=== PATIENT | male | born 1970 | race African-American/Black ===

== ENCOUNTER 2022-10-22 14:57 | Inpatient (IN) | payer OTHER ==
[2022-10-22 16:01] VITALS: BMI 23.3
[2022-10-22] MEDS ORDERED: COLLOIDAL OATMEAL 1 BAR EACH TP PRN (18:41)
[2022-10-22] MEDS ORDERED: NALOXONE HCL (KLOXXADO) 8 MG SPRAY NS PRN (18:41)
[2022-10-22] MEDS ORDERED: IBUPROFEN 600 MG TABLET (FP) PO PRN (18:41)
[2022-10-22] MEDS ORDERED: ACETAMINOPHEN 325 MG TABLET (FP) PO PRN (18:41)
[2022-10-22] MEDS ORDERED: MAG HYDROX/AL HYDROX/SIMETH 30 ML UNIT-DOSE CUP PO PRN (18:41)
[2022-10-22] MEDS ORDERED: POLYETHYLENE GLYCOL (HEALTHYLAX) 3350 17 GM PACKET PO PRN (18:41)
[2022-10-22] MEDS ORDERED: MAGNESIUM HYDROX 2400MG/30ML ORAL SUSPENSION 30 ML CUP PO PRN (18:41)
[2022-10-22] MEDS ORDERED: IBUPROFEN 400 MG TABLET (FP) PO PRN (18:41)
[2022-10-22] MEDS ORDERED: AMMONIUM LACTATE 12% LOTION 225 GM BOTTLE TP PRN (18:41)
[2022-10-22] MEDS ORDERED: BENZONATATE 200 MG CAPSULE PO PRN (18:41)
[2022-10-22] MEDS ORDERED: guaiFENesin 600 MG TABLET.ER (FP) PO PRN (18:41)
[2022-10-22] MEDS ORDERED: LOPERAMIDE HCL 2 MG CAPSULE PO PRN (18:41)
[2022-10-22] MEDS ORDERED: NALOXONE HCL 0.4 MG/ML VIAL IM PRN (18:41)
[2022-10-22] MEDS ORDERED: hydrOXYzine PAMOATE 25 MG CAPSULE (FP) PO PRN (18:41)
[2022-10-22] MEDS ORDERED: BENZOCAINE/MENTHOL (CHLORASEPTIC ) LOZENGE MM PRN (18:41)
[2022-10-22] MEDS: MELATONIN 5 MG TABLETS PO SCH (21:45)
[2022-10-22] MEDS: LACOSAMIDE 50 MG TABLET PO SCH (21:46)
[2022-10-22] MEDS: THIAMINE HCL 100 MG TABLET (FP) PO SCH (21:46)
[2022-10-22] MEDS ORDERED: TUBERCULIN PPD 5 TU/0.1ML VIAL ID ONE (21:53)
[2022-10-22] MEDS ORDERED: risperiDONE 1 MG TABLET PO ONE (23:00)
[2022-10-23] MEDS: LACOSAMIDE 50 MG TABLET PO SCH ×2 (09:38→21:47)
[2022-10-23] MEDS: PRENATAL VITAMINS W/ FOLIC ACID TABLET (FP) PO SCH (09:38)
[2022-10-23] MEDS: FOLIC ACID 1 MG TABLET (FP) PO SCH (09:38)
[2022-10-23] MEDS: MIDODRINE HCL 5 MG TABLET PO SCH ×3 (09:39→18:54)
[2022-10-23 15:53] LABS: PH,URINE 7.5 (5.0-8.0); URINE APPEARANCE CLEAR; URINE BILIRUBIN NEGATIVE (NEGATIVE); URINE COLOR YELLOW; URINE GLUCOSE (UA) NEGATIVE (NEGATIVE); URINE KETONE NEGATIVE (NEGATIVE); URINE LEUK ESTERASE NEGATIVE (NEGATIVE); URINE NITRITE NEGATIVE (NEGATIVE); URINE PROTEIN NEGATIVE (NEGATIVE); URINE UROBILINOGEN 0.2 mg/dL (0.2-1.0)
[2022-10-23] MEDS: risperiDONE 2 MG TABLET PO SCH (21:22)
[2022-10-23] MEDS: MELATONIN 5 MG TABLETS PO SCH (21:22)
[2022-10-23] MEDS: THIAMINE HCL 100 MG TABLET (FP) PO SCH (21:22)
[2022-10-24] MEDS: risperiDONE 1 MG TABLET PO SCH (09:35)
[2022-10-24] MEDS: FOLIC ACID 1 MG TABLET (FP) PO SCH (09:35)
[2022-10-24] MEDS: MIDODRINE HCL 5 MG TABLET PO SCH ×3 (09:35→21:18)
[2022-10-24] MEDS: PRENATAL VITAMINS W/ FOLIC ACID TABLET (FP) PO SCH (09:35)
[2022-10-24] MEDS: LACOSAMIDE 50 MG TABLET PO SCH ×2 (09:35→21:17)
[2022-10-24 16:02] LABS: HEMATOCRIT 41.9 % (35.4-49); HEMOGLOBIN 14.3 GM/dL (11.7-16.9); MCH 30.6 pg (25.7-33.7); MCHC 34.1 g/dl (32.0-35.9); MEAN CELL VOLUME 89.7 fl (80-96); MEAN PLT VOLUME 8.1 fl (7.5-11.1); PLATELET COUNT 272 10^3/uL (134-434); RBC 4.67 M/mm3 (4.00-5.60); RDW 14.5 % (11.9-15.9)
[2022-10-24 16:07] LABS: POTASSIUM 4.2 mmol/L (3.5-5.1)
[2022-10-24 16:11] LABS: CALCIUM 8.5 mg/dL (8.5-10.1)
[2022-10-24 16:12] LABS: ALBUMIN 3.2 g/dl (3.4-5.0); BLOOD UREA NITROGEN 15.5 mg/dL (7-18)
[2022-10-24 16:15] LABS: CREATININE 0.9 mg/dL (0.55-1.3)
[2022-10-24 16:16] LABS: BILIRUBIN,TOTAL 0.3 mg/dL (0.2-1); TOT PROT 6.2 g/dl (6.4-8.2)
[2022-10-24] MEDS: THIAMINE HCL 100 MG TABLET (FP) PO SCH (21:17)
[2022-10-24] MEDS: MELATONIN 5 MG TABLETS PO SCH (21:17)
[2022-10-24] MEDS: risperiDONE 2 MG TABLET PO SCH (21:18)
[2022-10-25] MEDS: LACOSAMIDE 50 MG TABLET PO SCH ×2 (09:53→21:34)
[2022-10-25] MEDS: PRENATAL VITAMINS W/ FOLIC ACID TABLET (FP) PO SCH (09:54)
[2022-10-25] MEDS: MIDODRINE HCL 5 MG TABLET PO SCH ×3 (09:54→17:05)
[2022-10-25] MEDS: risperiDONE 1 MG TABLET PO SCH (09:54)
[2022-10-25] MEDS: FOLIC ACID 1 MG TABLET (FP) PO SCH (09:54)
[2022-10-25] MEDS: risperiDONE 2 MG TABLET PO SCH (21:34)
[2022-10-25] MEDS: MELATONIN 5 MG TABLETS PO SCH (21:34)
[2022-10-25] MEDS: THIAMINE HCL 100 MG TABLET (FP) PO SCH (21:34)
[2022-10-26] MEDS: LACOSAMIDE 50 MG TABLET PO SCH ×2 (09:42→21:13)
[2022-10-26] MEDS: FOLIC ACID 1 MG TABLET (FP) PO SCH (09:42)
[2022-10-26] MEDS: MIDODRINE HCL 5 MG TABLET PO SCH ×3 (09:42→18:30)
[2022-10-26] MEDS: PRENATAL VITAMINS W/ FOLIC ACID TABLET (FP) PO SCH (09:42)
[2022-10-26] MEDS: risperiDONE 1 MG TABLET PO SCH (09:42)
[2022-10-26] MEDS: MELATONIN 5 MG TABLETS PO SCH (21:12)
[2022-10-26] MEDS: THIAMINE HCL 100 MG TABLET (FP) PO SCH (21:12)
[2022-10-26] MEDS: risperiDONE 2 MG TABLET PO SCH (21:12)
[2022-10-27] MEDS: LACOSAMIDE 50 MG TABLET PO SCH ×2 (10:00→21:14)
[2022-10-27] MEDS: MIDODRINE HCL 5 MG TABLET PO SCH ×3 (10:00→18:36)
[2022-10-27] MEDS: risperiDONE 2 MG TABLET PO SCH ×2 (10:00→21:14)
[2022-10-27] MEDS: FOLIC ACID 1 MG TABLET (FP) PO SCH (10:00)
[2022-10-27] MEDS: PRENATAL VITAMINS W/ FOLIC ACID TABLET (FP) PO SCH (10:00)
[2022-10-27] MEDS: THIAMINE HCL 100 MG TABLET (FP) PO SCH (21:14)
[2022-10-27] MEDS: MELATONIN 5 MG TABLETS PO SCH (21:14)
[2022-10-28] MEDS: LACOSAMIDE 50 MG TABLET PO SCH ×2 (10:20→21:08)
[2022-10-28] MEDS: FOLIC ACID 1 MG TABLET (FP) PO SCH (10:20)
[2022-10-28] MEDS: PRENATAL VITAMINS W/ FOLIC ACID TABLET (FP) PO SCH (10:20)
[2022-10-28] MEDS: MIDODRINE HCL 5 MG TABLET PO SCH ×3 (10:20→17:59)
[2022-10-28] MEDS: risperiDONE 2 MG TABLET PO SCH ×2 (10:20→21:07)
[2022-10-28] MEDS: THIAMINE HCL 100 MG TABLET (FP) PO SCH (21:07)
[2022-10-28] MEDS: MELATONIN 5 MG TABLETS PO SCH (21:07)
[2022-10-29] MEDS: MIDODRINE HCL 5 MG TABLET PO SCH ×3 (09:58→18:26)
[2022-10-29] MEDS: LACOSAMIDE 50 MG TABLET PO SCH ×2 (09:59→21:22)
[2022-10-29] MEDS: PRENATAL VITAMINS W/ FOLIC ACID TABLET (FP) PO SCH (09:59)
[2022-10-29] MEDS: risperiDONE 2 MG TABLET PO SCH ×2 (09:59→21:22)
[2022-10-29] MEDS: FOLIC ACID 1 MG TABLET (FP) PO SCH (09:59)
[2022-10-29] MEDS: MELATONIN 5 MG TABLETS PO SCH (21:21)
[2022-10-29] MEDS: THIAMINE HCL 100 MG TABLET (FP) PO SCH (21:21)
[2022-10-30] MEDS: PRENATAL VITAMINS W/ FOLIC ACID TABLET (FP) PO SCH (09:35)
[2022-10-30] MEDS: LACOSAMIDE 50 MG TABLET PO SCH ×2 (09:36→21:56)
[2022-10-30] MEDS: FOLIC ACID 1 MG TABLET (FP) PO SCH (09:36)
[2022-10-30] MEDS: risperiDONE 2 MG TABLET PO SCH ×2 (09:36→21:56)
[2022-10-30] MEDS: MIDODRINE HCL 5 MG TABLET PO SCH ×3 (09:36→17:40)
[2022-10-30] MEDS ORDERED: PNEUMOC 20-VAL CONJ-DIP CRM/PF 0.5 ML SYRINGE IM ONE (12:30)
[2022-10-30] MEDS: THIAMINE HCL 100 MG TABLET (FP) PO SCH (21:56)
[2022-10-30] MEDS: MELATONIN 5 MG TABLETS PO SCH (21:56)
[2022-10-31] MEDS: MIDODRINE HCL 5 MG TABLET PO SCH ×3 (10:05→17:34)
[2022-10-31] MEDS: LACOSAMIDE 50 MG TABLET PO SCH ×2 (10:05→21:34)
[2022-10-31] MEDS: FOLIC ACID 1 MG TABLET (FP) PO SCH (10:05)
[2022-10-31] MEDS: risperiDONE 2 MG TABLET PO SCH ×2 (10:05→21:34)
[2022-10-31] MEDS: PRENATAL VITAMINS W/ FOLIC ACID TABLET (FP) PO SCH (10:05)
[2022-10-31] MEDS: MELATONIN 5 MG TABLETS PO SCH (21:35)
[2022-10-31] MEDS: THIAMINE HCL 100 MG TABLET (FP) PO SCH (21:35)
[2022-11-01] MEDS: LACOSAMIDE 50 MG TABLET PO SCH ×2 (09:22→21:15)
[2022-11-01] MEDS: MIDODRINE HCL 5 MG TABLET PO SCH ×3 (09:23→18:22)
[2022-11-01] MEDS: PRENATAL VITAMINS W/ FOLIC ACID TABLET (FP) PO SCH (09:23)
[2022-11-01] MEDS: FOLIC ACID 1 MG TABLET (FP) PO SCH (09:23)
[2022-11-01] MEDS: risperiDONE 2 MG TABLET PO SCH ×2 (09:23→21:14)
[2022-11-01] MEDS: MELATONIN 5 MG TABLETS PO SCH (21:14)
[2022-11-01] MEDS: THIAMINE HCL 100 MG TABLET (FP) PO SCH (21:14)
[2022-11-02] MEDS: LACOSAMIDE 50 MG TABLET PO SCH ×2 (09:10→21:07)
[2022-11-02] MEDS: risperiDONE 2 MG TABLET PO SCH ×2 (09:11→21:06)
[2022-11-02] MEDS: PRENATAL VITAMINS W/ FOLIC ACID TABLET (FP) PO SCH (09:11)
[2022-11-02] MEDS: FOLIC ACID 1 MG TABLET (FP) PO SCH (09:11)
[2022-11-02] MEDS: MIDODRINE HCL 5 MG TABLET PO SCH ×3 (09:12→18:23)
[2022-11-02] MEDS ORDERED: PNEUMOC 20-VAL CONJ-DIP CRM/PF 0.5 ML SYRINGE IM ONE (12:00)
[2022-11-02] MEDS: MELATONIN 5 MG TABLETS PO SCH (21:06)
[2022-11-02] MEDS: THIAMINE HCL 100 MG TABLET (FP) PO SCH (21:06)
[2022-11-03] MEDS: PRENATAL VITAMINS W/ FOLIC ACID TABLET (FP) PO SCH (09:34)
[2022-11-03] MEDS: MIDODRINE HCL 5 MG TABLET PO SCH ×3 (09:34→17:16)
[2022-11-03] MEDS: risperiDONE 2 MG TABLET PO SCH ×2 (09:35→21:18)
[2022-11-03] MEDS: FOLIC ACID 1 MG TABLET (FP) PO SCH (09:35)
[2022-11-03] MEDS: LACOSAMIDE 50 MG TABLET PO SCH ×2 (09:35→21:18)
[2022-11-03] MEDS: MELATONIN 5 MG TABLETS PO SCH (21:18)
[2022-11-03] MEDS: THIAMINE HCL 100 MG TABLET (FP) PO SCH (21:18)
[2022-11-04] MEDS: PRENATAL VITAMINS W/ FOLIC ACID TABLET (FP) PO SCH (09:32)
[2022-11-04] MEDS: MIDODRINE HCL 5 MG TABLET PO SCH ×3 (09:33→17:28)
[2022-11-04] MEDS: FOLIC ACID 1 MG TABLET (FP) PO SCH (09:33)
[2022-11-04] MEDS: LACOSAMIDE 50 MG TABLET PO SCH ×2 (09:33→21:21)
[2022-11-04] MEDS: risperiDONE 2 MG TABLET PO SCH ×2 (09:34→21:21)
[2022-11-04] MEDS: MELATONIN 5 MG TABLETS PO SCH (21:21)
[2022-11-04] MEDS: THIAMINE HCL 100 MG TABLET (FP) PO SCH (21:21)
[2022-11-05] MEDS: risperiDONE 2 MG TABLET PO SCH ×2 (09:34→21:04)
[2022-11-05] MEDS: LACOSAMIDE 50 MG TABLET PO SCH ×2 (09:34→21:05)
[2022-11-05] MEDS: FOLIC ACID 1 MG TABLET (FP) PO SCH (09:34)
[2022-11-05] MEDS: PRENATAL VITAMINS W/ FOLIC ACID TABLET (FP) PO SCH (09:34)
[2022-11-05] MEDS: MIDODRINE HCL 5 MG TABLET PO SCH ×3 (09:34→18:16)
[2022-11-05] MEDS: MELATONIN 5 MG TABLETS PO SCH (21:04)
[2022-11-05] MEDS: THIAMINE HCL 100 MG TABLET (FP) PO SCH (21:04)
[2022-11-06] MEDS: LACOSAMIDE 50 MG TABLET PO SCH ×2 (09:20→21:14)
[2022-11-06] MEDS: PRENATAL VITAMINS W/ FOLIC ACID TABLET (FP) PO SCH (09:20)
[2022-11-06] MEDS: FOLIC ACID 1 MG TABLET (FP) PO SCH (09:20)
[2022-11-06] MEDS: risperiDONE 2 MG TABLET PO SCH ×2 (09:20→21:14)
[2022-11-06] MEDS: MIDODRINE HCL 5 MG TABLET PO SCH ×3 (09:20→18:39)
[2022-11-06] MEDS: THIAMINE HCL 100 MG TABLET (FP) PO SCH (21:14)
[2022-11-06] MEDS: MELATONIN 5 MG TABLETS PO SCH (21:14)
[2022-11-07] MEDS: MIDODRINE HCL 5 MG TABLET PO SCH ×3 (10:06→17:47)
[2022-11-07] MEDS: LACOSAMIDE 50 MG TABLET PO SCH ×2 (10:06→21:11)
[2022-11-07] MEDS: PRENATAL VITAMINS W/ FOLIC ACID TABLET (FP) PO SCH (10:06)
[2022-11-07] MEDS: FOLIC ACID 1 MG TABLET (FP) PO SCH (10:06)
[2022-11-07] MEDS: risperiDONE 2 MG TABLET PO SCH ×2 (10:06→21:11)
[2022-11-07] MEDS: MELATONIN 5 MG TABLETS PO SCH (21:10)
[2022-11-07] MEDS: THIAMINE HCL 100 MG TABLET (FP) PO SCH (21:10)
[2022-11-08] MEDS: PRENATAL VITAMINS W/ FOLIC ACID TABLET (FP) PO SCH (10:02)
[2022-11-08] MEDS: risperiDONE 2 MG TABLET PO SCH ×2 (10:03→21:30)
[2022-11-08] MEDS: FOLIC ACID 1 MG TABLET (FP) PO SCH (10:03)
[2022-11-08] MEDS: MIDODRINE HCL 5 MG TABLET PO SCH ×3 (10:03→17:06)
[2022-11-08] MEDS: LACOSAMIDE 50 MG TABLET PO SCH ×2 (10:03→21:30)
[2022-11-08] MEDS: THIAMINE HCL 100 MG TABLET (FP) PO SCH (21:30)
[2022-11-08] MEDS: MELATONIN 5 MG TABLETS PO SCH (21:30)
[2022-11-09] MEDS: FOLIC ACID 1 MG TABLET (FP) PO SCH (10:10)
[2022-11-09] MEDS: PRENATAL VITAMINS W/ FOLIC ACID TABLET (FP) PO SCH (10:10)
[2022-11-09] MEDS: MIDODRINE HCL 5 MG TABLET PO SCH ×3 (10:10→18:29)
[2022-11-09] MEDS: risperiDONE 2 MG TABLET PO SCH ×2 (10:10→21:16)
[2022-11-09] MEDS: LACOSAMIDE 50 MG TABLET PO SCH ×2 (10:11→21:17)
[2022-11-09] MEDS: THIAMINE HCL 100 MG TABLET (FP) PO SCH (21:16)
[2022-11-09] MEDS: MELATONIN 5 MG TABLETS PO SCH (21:17)
[2022-11-10] MEDS: PRENATAL VITAMINS W/ FOLIC ACID TABLET (FP) PO SCH (10:06)
[2022-11-10] MEDS: FOLIC ACID 1 MG TABLET (FP) PO SCH (10:06)
[2022-11-10] MEDS: MIDODRINE HCL 5 MG TABLET PO SCH ×3 (10:06→18:55)
[2022-11-10] MEDS: risperiDONE 2 MG TABLET PO SCH ×2 (10:06→21:12)
[2022-11-10] MEDS: LACOSAMIDE 50 MG TABLET PO SCH ×2 (10:06→21:12)
[2022-11-10] MEDS: THIAMINE HCL 100 MG TABLET (FP) PO SCH (21:12)
[2022-11-10] MEDS: MELATONIN 5 MG TABLETS PO SCH (21:12)
[2022-11-11] MEDS: LACOSAMIDE 50 MG TABLET PO SCH ×2 (09:59→21:23)
[2022-11-11] MEDS: FOLIC ACID 1 MG TABLET (FP) PO SCH (09:59)
[2022-11-11] MEDS: PRENATAL VITAMINS W/ FOLIC ACID TABLET (FP) PO SCH (10:00)
[2022-11-11] MEDS: risperiDONE 2 MG TABLET PO SCH ×2 (10:00→21:22)
[2022-11-11] MEDS: MIDODRINE HCL 5 MG TABLET PO SCH ×3 (10:00→18:22)
[2022-11-11] MEDS: THIAMINE HCL 100 MG TABLET (FP) PO SCH (21:22)
[2022-11-11] MEDS: MELATONIN 5 MG TABLETS PO SCH (21:22)
[2022-11-12] MEDS: PRENATAL VITAMINS W/ FOLIC ACID TABLET (FP) PO SCH (09:57)
[2022-11-12] MEDS: risperiDONE 2 MG TABLET PO SCH ×2 (09:57→21:19)
[2022-11-12] MEDS: LACOSAMIDE 50 MG TABLET PO SCH ×2 (09:58→21:20)
[2022-11-12] MEDS: FOLIC ACID 1 MG TABLET (FP) PO SCH (09:58)
[2022-11-12] MEDS: MIDODRINE HCL 5 MG TABLET PO SCH ×3 (09:58→18:07)
[2022-11-12] MEDS: MELATONIN 5 MG TABLETS PO SCH (21:19)
[2022-11-12] MEDS: THIAMINE HCL 100 MG TABLET (FP) PO SCH (21:19)
[2022-11-13] MEDS: PRENATAL VITAMINS W/ FOLIC ACID TABLET (FP) PO SCH (09:59)
[2022-11-13] MEDS: FOLIC ACID 1 MG TABLET (FP) PO SCH (10:00)
[2022-11-13] MEDS: MIDODRINE HCL 5 MG TABLET PO SCH ×3 (10:00→18:13)
[2022-11-13] MEDS: LACOSAMIDE 50 MG TABLET PO SCH ×2 (10:00→21:35)
[2022-11-13] MEDS: risperiDONE 2 MG TABLET PO SCH ×2 (10:00→21:35)
[2022-11-13] MEDS: MELATONIN 5 MG TABLETS PO SCH (21:34)
[2022-11-13] MEDS: THIAMINE HCL 100 MG TABLET (FP) PO SCH (21:34)
[2022-11-14] MEDS: PRENATAL VITAMINS W/ FOLIC ACID TABLET (FP) PO SCH (09:39)
[2022-11-14] MEDS: LACOSAMIDE 50 MG TABLET PO SCH ×2 (09:40→21:31)
[2022-11-14] MEDS: FOLIC ACID 1 MG TABLET (FP) PO SCH (09:40)
[2022-11-14] MEDS: risperiDONE 2 MG TABLET PO SCH ×2 (09:40→21:31)
[2022-11-14] MEDS: MIDODRINE HCL 5 MG TABLET PO SCH ×3 (09:40→17:43)
[2022-11-14] MEDS: MELATONIN 5 MG TABLETS PO SCH (21:31)
[2022-11-14] MEDS: THIAMINE HCL 100 MG TABLET (FP) PO SCH (21:31)
[2022-11-15] MEDS: PRENATAL VITAMINS W/ FOLIC ACID TABLET (FP) PO SCH (10:06)
[2022-11-15] MEDS: MIDODRINE HCL 5 MG TABLET PO SCH ×3 (10:06→18:26)
[2022-11-15] MEDS: LACOSAMIDE 50 MG TABLET PO SCH ×2 (10:06→21:11)
[2022-11-15] MEDS: risperiDONE 2 MG TABLET PO SCH ×2 (10:06→21:11)
[2022-11-15] MEDS: FOLIC ACID 1 MG TABLET (FP) PO SCH (10:06)
[2022-11-15] MEDS: THIAMINE HCL 100 MG TABLET (FP) PO SCH (21:11)
[2022-11-15] MEDS: MELATONIN 5 MG TABLETS PO SCH (21:11)
[2022-11-16] MEDS: risperiDONE 2 MG TABLET PO SCH ×2 (10:20→21:18)
[2022-11-16] MEDS: PRENATAL VITAMINS W/ FOLIC ACID TABLET (FP) PO SCH (10:20)
[2022-11-16] MEDS: FOLIC ACID 1 MG TABLET (FP) PO SCH (10:20)
[2022-11-16] MEDS: MIDODRINE HCL 5 MG TABLET PO SCH ×3 (10:20→17:51)
[2022-11-16] MEDS: LACOSAMIDE 50 MG TABLET PO SCH ×2 (10:21→21:19)
[2022-11-16] MEDS: MELATONIN 5 MG TABLETS PO SCH (21:18)
[2022-11-16] MEDS: THIAMINE HCL 100 MG TABLET (FP) PO SCH (21:18)
[2022-11-17] MEDS: LACOSAMIDE 50 MG TABLET PO SCH ×2 (10:33→21:21)
[2022-11-17] MEDS: FOLIC ACID 1 MG TABLET (FP) PO SCH (10:33)
[2022-11-17] MEDS: PRENATAL VITAMINS W/ FOLIC ACID TABLET (FP) PO SCH (10:33)
[2022-11-17] MEDS: MIDODRINE HCL 5 MG TABLET PO SCH ×3 (10:33→18:16)
[2022-11-17] MEDS: risperiDONE 2 MG TABLET PO SCH ×2 (10:33→21:21)
[2022-11-17] MEDS: THIAMINE HCL 100 MG TABLET (FP) PO SCH (21:21)
[2022-11-17] MEDS: MELATONIN 5 MG TABLETS PO SCH (21:22)
[2022-11-18] MEDS: risperiDONE 2 MG TABLET PO SCH ×2 (09:46→21:13)
[2022-11-18] MEDS: PRENATAL VITAMINS W/ FOLIC ACID TABLET (FP) PO SCH (09:46)
[2022-11-18] MEDS: LACOSAMIDE 50 MG TABLET PO SCH ×2 (09:46→21:13)
[2022-11-18] MEDS: MIDODRINE HCL 5 MG TABLET PO SCH ×3 (09:46→17:09)
[2022-11-18] MEDS: FOLIC ACID 1 MG TABLET (FP) PO SCH (09:46)
[2022-11-18 13:22] VITALS: RESP 18
[2022-11-18] MEDS: MELATONIN 5 MG TABLETS PO SCH (21:12)
[2022-11-18] MEDS: THIAMINE HCL 100 MG TABLET (FP) PO SCH (21:12)
[2022-11-19 06:56] VITALS: TEMP 97.1
[2022-11-19] MEDS: PRENATAL VITAMINS W/ FOLIC ACID TABLET (FP) PO SCH (10:07)
[2022-11-19] MEDS: FOLIC ACID 1 MG TABLET (FP) PO SCH (10:08)
[2022-11-19] MEDS: risperiDONE 2 MG TABLET PO SCH (10:08)
[2022-11-19] MEDS: MIDODRINE HCL 5 MG TABLET PO SCH (10:08)
[2022-11-19] MEDS: LACOSAMIDE 50 MG TABLET PO SCH (10:08)
[2022-11-19 10:38] VITALS: BP 106/62; PULSE 95
== END 2022-11-19 10:46 | disposition home or self-care (01) | DRG 772 ==
LOC: YASAS 14:57 → Y3W 18:36
PROVIDERS: ADMIT Allergy & Immunology; ATTEND Psychiatry & Neurology Pain Medicine
PROC: HZ42ZZZ Group Counseling for Substance Abuse Treatment, Cognitive-Behavioral (ICD-10-PCS; principal; 2022-10-22)
DX: F10.20 Alcohol dependence, uncomplicated (principal); F31.9 Bipolar disorder, unspecified; R56.9 Unspecified convulsions; Z56.0 Unemployment, unspecified; Z59.00 Homelessness unspecified
CPT/HCPCS: 36415; 80053; 81003; 85027; 86780; 86803; 87635; 87811; 90677